=== PATIENT | female | born 1980 | race Caucasian/White ===

== ENCOUNTER 2018-03-23 02:22 | Emergency (ER) | payer OTHER ==
[2018-03-23] MEDS ORDERED: Ketorolac 60 MG/2 ML SDV IM ONE (04:43)
[2018-03-23] MEDS ORDERED: Ondansetron 4 MG Tab.DIS PO ONE (04:43)
--- NOTE | 2018-03-23 04:49 | EDM.PDOC ---
ED HPI GENERAL MEDICAL PROBLEM - General Chief Complaint: Flank Pain Stated Complaint: RIGHT SIDED ABDOMINAL PAIN Time Seen by Provider: 03/23/18 04:35 Source of Information: Reports: Patient History Limitations: Reports: No Limitations - History of Present Illness INITIAL COMMENTS - FREE TEXT/NARRATIVE: 37 yo female here with R flank and abdominal pain that began abruptly tonight at home. No fever. Nausea was present earlier. No hx of kidney stones. Is feeling better now in the ER. Onset Date: 03/22/18 Onset Time: 23:30 Duration: Hour(s):, Intermittent, Waxing/Waning Location: Reports: Abdomen, Back Quality: Reports: Sharp Severity: Severe Improves with: Reports: Other (? time) Worsens with: Reports: Other (unknown) Context: Reports: Other (uncertain) Associated Symptoms: Reports: Diaphoresis, Nausea/Vomiting. Denies: Fever/ Chills Treatments [employer]: Reports: NSAIDS, Other (see below) (none) Right Lower Abdomen Pain Score (Numeric/FACES): 5 - Related Data Allergies Allergy/AdvReac Type Severity Reaction Status Date / Time No Known Allergies Allergy Verified 03/23/18 04:36 Home Meds: Home Meds Control Implant 03/23/18 [History] NK [No Known Home Meds] 03/23/18 [History] Past Medical History [employer] History: Reports: Musculoskeletal History: Reports: Fracture, Other (See Below) Other Musculoskeletal History: tib/fib - Past Surgical History HEENT Surgical History: Reports: Tonsillectomy Social & Family History - Tobacco Use Smoking Status *Q: Never Smoker - Caffeine Use Caffeine Use: Reports: Coffee - Recreational Drug Use Recreational Drug Use: No ED ROS GENERAL - Review of Systems Review Of Systems: See Below Constitutional: Reports: No Symptoms HEENT: Reports: No Symptoms Respiratory: Reports: No Symptoms Cardiovascular: Reports: No Symptoms GI/Abdominal: Reports: Diarrhea, Nausea. Denies: Black Stool, Bloody Stool, Constipation, Decreased Appetite, Distension, Flatus, Hematemesis, Hematochezia , Melena, Vomiting : Reports: Flank Pain Musculoskeletal: Reports: No Symptoms Skin: Reports: No Symptoms Neurological: Reports: No Symptoms ED EXAM, RENAL/ - Physical Exam Exam: See Below Exam Limited By: No Limitations General Appearance: Alert, WD/WN, No Apparent Distress Eye Exam: Bilateral Eye: Normal Inspection Ears: Normal External Exam, Normal Canal, Hearing Grossly Normal Nose: Normal Inspection, Normal Mucosa, No Blood Throat/Mouth: Normal Inspection, Normal Lips, Normal Oropharynx, Normal Voice, No Airway Compromise Head: Atraumatic, Normocephalic Neck: Normal Inspection, Supple, Non-Tender Respiratory/Chest: No Respiratory Distress, Lungs Clear, Normal Breath Sounds, No Accessory Muscle Use Cardiovascular: Regular Rate, Rhythm GI/Abdominal: Normal Bowel Sounds, Soft, No Distention, Tender (mild R sided tenderness.) Back Exam: Normal Inspection, CVA Tenderness (R) (mild). No: CVA Tenderness (L) Extremities: Normal Inspection, Normal Range of Motion, Non-Tender, No Pedal Edema Neurological: Alert, Oriented, CN II-XII Intact, Normal Cognition, No Motor/ Sensory Deficits Psychiatric: Normal Affect, Normal Mood Skin Exam: Warm, Dry, Intact, Normal Color, No Rash Lymphatic: No Adenopathy Course - Vital Signs Last Recorded V/S: Last Vital Signs Temp 36.7 C 03/23/18 04:29 Pulse 75 03/23/18 04:29 Resp 14 03/23/18 04:29 BP 137/92 H 03/23/18 04:29 Pulse Ox 96 03/23/18 04:29 - Orders/Labs/Meds Orders: Active Orders 24 hr Category Date Time Status CULTURE URINE [RM] Stat Lab 03/23/18 04:00 Ordered UA W/MICROSCOPIC [URIN] Stat Lab 03/23/18 03:59 Ordered Labs: Laboratory Tests 03/23/18 Range/Units 03:59 Urine Color Yellow Urine Appearance Cloudy Urine pH 6.0 (4.5-8.0) Ur Specific [place] 1.020 (1.008-1.030) Urine Protein Negative (NEGATIVE) mg/dL Urine Glucose (UA) Normal (NEGATIVE) mg/dL Urine Ketones Negative (NEGATIVE) mg/dL Urine Occult Blood Large (NEGATIVE) Urine Nitrite Negative (NEGATIVE) Urine Bilirubin Small (NEGATIVE) Urine Urobilinogen 4 (NORMAL) mg/dL Ur Leukocyte Esterase Negative (NEGATIVE) Urine RBC 50-75 H (0-5) Urine WBC 5-10 H (0-5) Ur Epithelial Cells Few Amorphous Sediment Not seen Urine Bacteria Moderate Urine Mucus Not seen Meds: Medications Discontinued Medications Generic Name Dose Route Start Last Admin Trade Name Freq PRN Reason Stop Dose Admin Ketorolac Tromethamine 60 mg 03/23/18 04:43 03/23/18 04:58 Toradol IM 03/23/18 04:44 60 mg ONETIME ONE Administration Ondansetron HCl 4 mg 03/23/18 04:43 03/23/18 04:58 Zofran Odt PO 03/23/18 04:44 4 mg ONETIME ONE Administration Departure - Departure Time of Disposition: 05:22 Disposition: Home, Self-Care 01 Condition: Fair Clinical Impression: Ureterolithiasis - Discharge Information Referrals: PCP,None [Primary Care Provider] - Forms: ED Department Discharge - My Orders Last 24 Hours: My Active Orders 03/23/18 03:59 UA W/MICROSCOPIC [URIN] Stat 03/23/18 04:00 CULTURE URINE [RM] Stat - Assessment/Plan Last 24 Hours: My Active Orders 03/23/18 03:59 UA W/MICROSCOPIC [URIN] Stat 03/23/18 04:00 CULTURE URINE [RM] Stat
== END 2018-03-23 05:45 | disposition home or self-care (01) ==
LOC: JP.ED 02:22
DX: N20.1 Calculus of ureter (principal)
CPT/HCPCS: 81001; 87086; 96372; 99284; A9270; J1885